=== PATIENT | male | born 1995 | race Caucasian/White ===

== ENCOUNTER 2018-12-09 22:52 | Emergency (ER) | payer SELFPAY ==
[~2018-12-09] VITALS: Ht 182.9 cm; Wt 68.0 kg
[2018-12-09 23:07] VITALS: BP 122/86
== END 2018-12-10 00:43 | disposition home or self-care (01) ==
LOC: ER 22:57
DX: S29.8XXA Other specified injuries of thorax, initial encounter (principal); F17.200 Nicotine dependence, unspecified, uncomplicated; V49.69XA Unspecified car occupant injured in collision with other motor vehicles in traffic accident, initial encounter; Y93.89 Activity, other specified; Y92.89 Other specified places as the place of occurrence of the external cause; Y99.8 Other external cause status
CPT/HCPCS: 72074-TC